=== PATIENT | female | born 1950 | race Caucasian/White ===

== ENCOUNTER → 2020-03-10 | Outpatient (CLI) | payer MEDICARE, OTHER ==
--- NOTE | 2020-03-12 17:21 | PE ---
EXAMINATION TYPE: PET CT fusion skull to thigh DATE OF EXAM: 03/10/2020 COMPARISON: None Prior PET/CT: None HISTORY: Solitary pulmonary nodule TECHNIQUE: Following the intravenous administration of 11.64 mCi of F-18 FDG, whole body images are performed from the skull base to the midthigh. Images are reviewed on the computer in the coronal, a xial, and sagittal planes. Reconstructed rotating images are created on independent workstation and reviewed on the computer. A localization and attenuation correction CT is performed in conjunction with the PET scan. DLP: 475.12 mGycm SCAN: Initial Blood glucose: 95 mg/dL Average Mediastinum SUV: 1.3 Average Liver SUV: 1.84 FINDINGS: NECK: No abnormal uptake. There is some uptake within the bilateral shoulder joint spaces which may be related to some frozen shoulder adhesions. THORAX: There is intense uptake within the mass in the anterior left upper lobe. This has an SUV valu e of 5.34. Image 64. There is intense uptake within the posterior right lung density with an SUV valu e of 3.89. Image 77. There is a focus of radiotracer accumulation within the pretracheal lymph node w hich is not enlarged. This has an SUV value of 2.17. Early metastasis or inflammatory change could be considered at this level. ABDOMEN: There is heterogeneity within the liver limiting evaluation for metastasis. PELVIS: There is beam hardening artifact from bilateral hip prostheses. Some uptake in the region of the between the ischial and pubic rami appears be present. This has an SUV value of 3.91. This area h owever is largely obscured by the beam hardening prostheses. Is unclear whether this is related to a bowel herniation or some soft tissue metastatic disease in this region. OSSEOUS STRUCTURES: There is increased radiotracer in the region of the left hip prosthesis. Small ar ea of increased signals lateral to the left greater trochanter image 196, SUV value 2.58. Consider po stsurgical change within the differential dislocation. An osseous metastasis is not excluded. Correla te with the timing of the prosthesis surgery. LOCALIZATION CT: Bilateral hip prostheses are present limiting evaluation through the pelvis. This in cludes the region between the pubic and ischio ramus where there appears to be some increased radiotr acer on the PET scan. Some cortical destruction anterior to the acetabular component on the left may be present. Osseous metastasis should be considered. Localization CT image 195. Lymph node in the pre tracheal space above the anila is enlarged on the localization CT Note is made of coronary artery ca lcification. Bilateral nonobstructing renal stones are noted COMPARISON: None IMPRESSION: 1. Hyperintense uptake within the left upper lobe and right midlung lung masses suspicious for neopla sm. 2. Hyperintense uptake within the pretracheal space suspicious for metastatic lymph node. 3. There may be some increase uptake in the region between the ischial and pubic ramus on the left. Workup for soft tissue neoplasm is recommended. 4. There may be a anterior left acetabular osseous metastasis.
== END | disposition home or self-care (01) ==
LOC: RADPETMAIN 12:07
PROVIDERS: ATTEND Internal Medicine
DX: R91.8 Other nonspecific abnormal finding of lung field (principal)
CPT/HCPCS: 78815; A9552

== ENCOUNTER 2020-03-29 08:46 | Day surgery (SDC) | payer MEDICARE, OTHER ==
[2020-03-29 09:24] VITALS: RESP 16; TEMP 98.1
[2020-03-29 09:25] LABS: Mean Platelet Volume 10.4; Platelet Count 157 k/uL (150-450)
[2020-03-29 09:30] LABS: INR 0.9 (<1.2); Prothrombin Time 9.9 sec (9.0-12.0)
[2020-03-29] MEDS ORDERED: ALPRAZolam 0.25 MG TAB PO STA (09:30)
[2020-03-29] MEDS ORDERED: HYDROmorphone 1 MG/ML 1 ML SYRINGE IVP STA (10:18)
--- NOTE | 2020-03-29 10:45 | XR ---
EXAMINATION TYPE: XR chest 1V portable DATE OF EXAM: 03/29/2020 HISTORY: Status post left lung biopsy COMPARISON: None. TECHNIQUE: Single view of the chest is submitted. FINDINGS: Demonstrated are scattered senescent parenchymal change. No evidence for pneumothorax identified. There is no evidence for focal infiltrate. The heart is stable. Hilar and mediastinal structures are within normal limits. Degenerative changes are seen of the dorsal spine. IMPRESSION: 1. Chronic changes without evidence for acute pulmonary disease.
[2020-03-29 11:56] VITALS: BP 143/79; PULSE 62
--- NOTE | 2020-03-29 12:50 | XR ---
EXAMINATION TYPE: XR chest 1V DATE OF EXAM: 03/29/2020 COMPARISON: Earlier today HISTORY: 69-year-old female to our post lung biopsy TECHNIQUE: Single frontal view of the chest is obtained. FINDINGS: Focal density at the left upper lung corresponding to the site of biopsy is redemonstrated. No apprec iable pneumothorax. Heart upper limits of normal in size. Similar interstitial density which appears chronic. No consolidation or pleural effusion. IMPRESSION: No appreciable pneumothorax. Known left upper lung density/mass.
--- NOTE | 2020-03-29 14:48 | CT ---
EXAMINATION TYPE: CT biopsy lung LT DATE OF EXAM: 03/29/2020 COMPARISON: 03/10/2020 HISTORY: Left lung mass CT DLP: 2110 mGycm The procedure is discussed with the patient, the risks, complications, benefits and alternatives, wer e discussed and any questions were answered. Informed consent was obtained. The patient is placed p james on the CT table, prepped and draped in the usual sterile fashion. Utilizing a 20-gauge core biopsy needle access into the left upper lobe mass was achieved with a sing le pass performed. Pathology confirmed adequate sample. All elements of maximal barrier technique w ere utilized. The patient remained stable throughout the procedure with no immediate postprocedural complication. IMPRESSION: 1. Successful CT guided core biopsy of the left upper lobe lung mass
== END 2020-03-29 12:55 | disposition home or self-care (01) ==
LOC: RADPROMAIN 08:46
PROVIDERS: ATTEND Internal Medicine
DX: C34.92 Malignant neoplasm of unspecified part of left bronchus or lung (principal)
CPT/HCPCS: 88305; 85049; 85610; 88342; 88341; 96374; 36415; 71045 ×2; 32405; 77012; J1170

== ENCOUNTER → 2022-07-10 | Outpatient (CLI) | payer MEDICARE, OTHER ==
--- NOTE | 2022-07-10 16:49 | CT ---
EXAMINATION TYPE: CT chest w con DATE OF EXAM: 07/10/2022 COMPARISON: HISTORY: Follow up for removal of CA in left lobe of lung CT DLP: 494.2 mGycm, Automated exposure control for dose reduction was used. CONTRAST: Performed injected with 70cc mL of Isovue 300. TECHNIQUE: Axial images were obtained at 5 mm thick sections. Reconstructed images are reviewed on [employer] computer in the coronal plane. FINDINGS: Portion of the thyroid visualized is normal. There is stable punctate nodule along the lateral left upper lung field periphery. Streak opacity ext ends to the suprahilar region is unchanged. Small area of pneumonitis in the posterior right lung is unchanged. Series 4 image 24. Some additional posterior right lung infiltrate is present. Series 4 im age 29, present previously. No enlarged mediastinal or hilar adenopathy is evident. The ascending aorta diameter at the level o f the main pulmonary artery is 3.2 cm. The main pulmonary artery diameter at the bifurcation is 3.[address] sections are obtained through the upper abdomen. Abdomen is essentially unremarkable. IMPRESSIONS: 1. Postsurgical changes. No suspicious changes to suggest recurrent or metastatic neoplasm. Continued monitoring is recommended.
== END | disposition home or self-care (01) ==
LOC: RADCTMAIN 14:42
PROVIDERS: ATTEND Internal Medicine Hematology & Oncology
DX: C34.12 Malignant neoplasm of upper lobe, left bronchus or lung (principal)
CPT/HCPCS: 82565; 84520; 71260; 36415; Q9967

== ENCOUNTER → 2023-07-23 | Outpatient (CLI) | payer MEDICARE, OTHER ==
[2023-07-23 13:04] LABS: African American GFR (CKD) 75 (>60 ml/min/1.73 sqM); Blood Urea Nitrogen 19 mg/dL (7-17); Non-African American GFR(CKD) 65 (>60 ml/min/1.73 sqM)
--- NOTE | 2023-07-23 21:36 | CT ---
EXAMINATION TYPE: CT chest w con DATE OF EXAM: 07/23/2023 COMPARISON: 07/10/2022 HISTORY: 72-year-old female C34.12, FOLLOW UP LEFT LOBE LUNG CANCER 3 YEARS TECHNIQUE: Contiguous axial scanning of the chest after the administration of 100ML mL of Isovue 300. Coronal/sagittal reconstructions performed. CT DLP: 441.90mGycm. Automatic exposure control utilized for a dose reduction. FINDINGS: The heart is normal size without pericardial effusion. LAD and circumflex coronary artery calcificati ons are present. Mild atherosclerotic arch calcifications with conventional arch vessel branching anatomy. A large caliber to the main right and left pulmonary arteries measuring up to 3.1 cm suggesting under lying pulmonary hypertension. No thoracic lymphadenopathy by CT size criteria. There is [id number] emphysema. Postsurgical change left upper lobe with curvilinear areas of sc arring and mild distortion of the parenchyma. A few areas of groundglass density are redemonstrated bilaterally. However, some of these areas show slight increasing soft tissue fullness, for example: * Medial right upper lobe with fullness now measuring 9 mm. * Also posterior right midlung axial image 24 measuring 2.1 x 0.9 cm (versus 1.3 x 0.7 cm, previousl y), * and subpleural peripheral left base measuring 1.7 cm versus 6 mm, previously. Unclear if these represent areas of progressive scarring. No pleural effusion. Visualized upper abdomen shows cholecystectomy clips and unchanged caliber to the dilated bile duct. A 2.6 cm right adrenal gland nodule remains unchanged suggesting a benign etiology such as an adrenal adenoma. Bones: Accentuated mid to lower thoracic kyphosis with moderate degenerative disc disease. Degenerati ve grade 1 anterolisthesis T3-T4. IMPRESSION: 1. Postsurgical changes left upper lobe. There is COPD with mild to moderate emphysema and pulmonary hypertension. 2. A few groundglass densities are redemonstrated. A few of these show increasing soft tissue fullnes s such as at the medial right upper lobe, posterior right midlung, and periphery of the left base. Fo r example, measuring up to 1.7 cm versus 6 mm, previously. Areas of progressive scarring are possible . Ongoing surveillance follow-up recommended to exclude sites of developing neoplasm.
== END | disposition home or self-care (01) ==
LOC: RADCTMAIN 12:26
PROVIDERS: ATTEND Internal Medicine Hematology & Oncology
DX: C34.12 Malignant neoplasm of upper lobe, left bronchus or lung (principal); K21.9 Gastro-esophageal reflux disease without esophagitis; M12.9 Arthropathy, unspecified; J43.2 Centrilobular emphysema; Z71.3 Dietary counseling and surveillance; R91.8 Other nonspecific abnormal finding of lung field
CPT/HCPCS: 82565; 84520; 71260; 36415; Q9967

== ENCOUNTER → 2023-09-25 | Outpatient (CLI) | payer MEDICARE, OTHER ==
--- NOTE | 2023-09-27 09:43 | PE ---
EXAMINATION TYPE: PET CT fusion skull to thigh DATE OF EXAM: 09/25/2023 CLINICAL INDICATION:Female, 72 years old with history of C34.12 Lung CA; TECHNIQUE: Following the intravenous administration of 10.61 mCi of F-18 FDG, whole body images are performed from the skull base to the midthigh. Images are reviewed on the computer in the coronal, axial, and sagittal planes. Reconstructed rotating images are created on independent workstation and reviewed on the computer. A non-contrast CT is performed in conjunction with the PET scan. Glucose level 96 mg/dL CT DLP: 877 mGycm, Automated exposure control for dose reduction was used. COMPARISON: CT 07/23/2023, PET/CT 10/12/2021, 03/10/2020. FINDINGS: Mediastinal SUV mean is 2.9. Hepatic parenchyma SUV mean is 2.5. SKULL BASE AND NECK: No suspicious radiotracer activity. CHEST, MEDIASTINUM, AND HILAR REGION: * Nodular changes in the right lower lung posterior aspect measuring up to 8 and 7 mm adjacent to ea ch other. This is an area of parenchymal scarring on immediate prior but on remote prior PET on 020 this area demonstrated increased radiotracer activity. Max SUV 6.9. * No abnormal uptake within the left lung or in the remainder of the thorax. ABDOMEN AND PELVIS: * No suspicious radiotracer activity. * Right inguinal uptake likely on basis of prior intervention. MUSCULOSKELETAL STRUCTURES: No suspicious radiotracer activity. OTHER CT: Scleral calcification bilateral globes redemonstrated. Moderate calcified plaque bilateral carotid bulb level. Coronary artery calcification redemonstrated. Prominent right pulmonary artery corey ggesting underlying pulmonary artery hypertension redemonstrated. Cholecystectomy clips redemonstrate d. Atherosclerotic ectatic abdominal aorta again seen. Uterus surgically absent or atrophic in appear ance. IMPRESSION: Right lower lung posterior opacities with a nodular morphology in an area of prior FDG avid uptake on 03/10/2020 and possibly relating to infectious/inflammatory process with malignancy not entirely exclu ded. Short-term follow up CT recommended.
== END | disposition home or self-care (01) ==
LOC: RADPETMAIN 12:07
PROVIDERS: ATTEND Internal Medicine Hematology & Oncology
DX: C34.12 Malignant neoplasm of upper lobe, left bronchus or lung (principal); R91.8 Other nonspecific abnormal finding of lung field
CPT/HCPCS: 78815; A9552

== ENCOUNTER → 2024-03-18 | Outpatient (CLI) | payer MEDICARE, OTHER ==
[2024-03-18 10:58] LABS: African American GFR (CKD) 71 (>60 ml/min/1.73 sqM); Blood Urea Nitrogen 25 mg/dL (7-17); Non-African American GFR(CKD) 61 (>60 ml/min/1.73 sqM)
--- NOTE | 2024-03-18 15:20 | CT ---
EXAMINATION TYPE: CT chest w con CT DLP: 485.9 mGycm, Automated exposure control for dose reduction was used. DATE OF EXAM: 03/18/2024 12:06 PM COMPARISON: PET CT 09/25/2023, 10/12/2021, CT chest 07/23/2023, 07/10/2022. CLINICAL INDICATION:Female, 73 years old with history of C34.12 Lung cancer; PHH, lung ca TECHNIQUE: Multiple axial images were obtained through the chest following the administration of 100 cc of Isovue 300. . Coronal and sagittal reformats reviewed. FINDINGS: LUNGS/ PLEURA: No pneumothorax or pleural effusion. Mild to moderate emphysematous changes. Post richmond gical change of the left upper lobe with curvilinear areas of scarring and mild distortion of the par enchyma. Similar grouped nodular changes in the right lower lung posterior aspect measuring 1.9 x 0.7 cm (series 4, image 24). New 2 posterior aspect of the right lower lobe nodular opacities measuring 6 mm each (series 4, image 31). Redemonstration of mixed solid/groundglass nodular opacity within the medial aspect of the right upper lobe (series 4, image 10). The solid component measures up to 1.1 c m and is become more apparent when compared to prior exam 07/11/2022. The groundglass component is sta ble from most recent prior exam but has increased from multiple prior exams. Dependent bilateral lowe r lobe paraseptal emphysematous changes with right greater than left. AIRWAY: Patent and unremarkable.. HEART: Size within normal limits. No pericardial effusion. Mild coronary artery calcifications. MEDIASTINUM: No gross evidence of adenopathy. VASCULATURE: No aortic aneurysm. Atherosclerotic calcification of the aorta and its branches. MUSCULOSKELETAL: No acute osseous abnormalities. No aggressive osseous lesion. Multilevel degenerativ e changes of the visualized thoracic lumbar spine. SOFT TISSUES/LYMPH NODES: Unremarkable. LOWER NECK: No significant findings. UPPER ABDOMEN: Postcholecystectomy changes. Unchanged dilated common bile duct likely related to chol ecystectomy. Stable right adrenal gland 2.4 cm nodule suggesting benign etiology such as an adrenal a denoma. IMPRESSION: 1. Redemonstration of right lower lung posterior nodular opacities from prior examination. There are some new nodular opacities identified within the inferior right posterior lung concerning for possibl e recurrence/metastasis. Infectious/inflammatory versus scarring nodularity is not excluded. Ongoing surveillance follow-up recommended with consideration for PET/CT. 2. Postsurgical changes of the left upper lobe. 3. COPD changes.
== END ==
LOC: RADCTMAIN 10:25
PROVIDERS: ATTEND Internal Medicine Hematology & Oncology
DX: C34.12 Malignant neoplasm of upper lobe, left bronchus or lung (principal); J44.9 Chronic obstructive pulmonary disease, unspecified; K21.9 Gastro-esophageal reflux disease without esophagitis; M12.9 Arthropathy, unspecified; Z71.3 Dietary counseling and surveillance
CPT/HCPCS: 82565; 84520; 71260; 36415; Q9967

== ENCOUNTER → 2024-11-09 | Outpatient (CLI) | payer MEDICARE, OTHER ==
[2024-11-09 12:16] LABS: African American GFR (CKD) 68 (>60 ml/min/1.73 sqM); Blood Urea Nitrogen 25 mg/dL (7-17); Non-African American GFR(CKD) 59 (>60 ml/min/1.73 sqM)
--- NOTE | 2024-11-09 13:19 | CT ---
CTA chest with contrast HISTORY: Follow-up lung cancer. COMPARISON: 03/18/2024 TECHNIQUE: Multiple axial images are obtained through the thorax following the uneventful administrat ion of nonionic IV contrast material. FINDINGS: There are stable postsurgical changes of left upper lobe resection. Annulus or suspicious lung masses or nodules within the left lung. There are a few stable scattered areas of subpleural parenchymal honeycombing in the right lung. Ther e is a mild interval increase in a right upper lobe pulmonary nodule chest increased in size from [place] roximately 7.1 mm to 8.7 mm. 2 additional right lower lobe nodules have increased in size slightly in the interval as well. The findings are suspicious for metastatic lung cancer. There is no mediastinal, hilar or axillary adenopathy. There is no pleural effusion or pneumothorax. Limited scanning through the upper abdomen reveals no gross abnormality. There are no focal sclerotic or destructive bone lesions. IMPRESSION: Findings suspicious for an metastatic lung cancer involving the right lung as described above. PET sc an could be useful for further evaluation. [facility], Workstation: [email or web address] 11/09/2024 1:16 PM
== END | disposition home or self-care (01) ==
LOC: RADCTMAIN 11:18
PROVIDERS: ATTEND Internal Medicine Hematology & Oncology
DX: C34.12 Malignant neoplasm of upper lobe, left bronchus or lung (principal); K21.9 Gastro-esophageal reflux disease without esophagitis; M12.9 Arthropathy, unspecified; I10 Essential (primary) hypertension; Z71.3 Dietary counseling and surveillance
CPT/HCPCS: 82565; 84520; 71260; 36415; Q9967

== ENCOUNTER → 2025-02-11 | Outpatient (CLI) | payer MEDICARE, OTHER ==
--- NOTE | 2025-02-14 07:39 | PE ---
EXAMINATION TYPE: PET CT fusion skull to thigh DATE OF EXAM: 02/11/2025 COMPARISON: Most recent prior PET/CT September 25, 2023 and older studies HISTORY: Malignant neoplasm of left upper lobe bronchus diagnosed 5 years earlier. TECHNIQUE: Following the intravenous administration of 10.58 mCi of F-18 FDG, whole body images are performed from the skull base to the midthigh. Images are reviewed on the computer in the coronal, a xial, and sagittal planes. Reconstructed rotating images are created on independent workstation and reviewed on the computer. A localization and attenuation correction CT is performed in conjunction with the PET scan. Blood glucose level equals 110. SCAN: Subsequent Scan FINDINGS: SKULL BASE AND NECK: No new areas of abnormal hypermetabolic uptake. CHEST, MEDIASTINUM, AND HILAR REGION: Persistent linear parenchymal scarring in the posterior superio r aspect right lower lobe with some areas of subtle nodular thickening and hypermetabolic uptake, max SUV is 5.59 versus 6.9 on most recent prior. Stable 1.6 cm groundglass opacity right upper lobe axial image 63 without abnormal hypermetabolic upt natacha. No new areas of abnormal hypermetabolic uptake in the left lung were remainder of the thorax. ABDOMEN AND PELVIS: No hypermetabolic adrenal masses. Normal excretion. No new areas of abnormal h ypermetabolic uptake. OSSEOUS STRUCTURES: No new areas of abnormal hypermetabolic uptake. OTHER CT: Bilateral aphakia redemonstrated. Moderate calcified plaque bilateral carotid bulb level is redemonstrated. Postsurgical changes to the left upper lobe are redemonstrated. Moderate to severe three-vessel coron joce artery calcification is redemonstrated. Cholecystectomy clips are redemonstrated. Metallic artifa ct from bilateral hip arthroplasties are present causing streak artifacts somewhat limiting evaluatio n of pelvic structures. IMPRESSION: No significant change from most recent prior PET/CT. Nonspecific Grossly stable hypermeta bolic uptake posterior right midlung. No new areas of abnormal hypermetabolic uptake identified. [facility], , 02/14/2025 7:36 AM
== END | disposition home or self-care (01) ==
LOC: RADPETMAIN 12:19
PROVIDERS: ATTEND Internal Medicine Hematology & Oncology
DX: C34.12 Malignant neoplasm of upper lobe, left bronchus or lung (principal)
CPT/HCPCS: 78815; A9552